=== PATIENT | female | born 1980 | race Caucasian/White ===

== ENCOUNTER 2018-04-06 11:43 | Emergency (ER) | payer MEDICAID, OTHER ==
[~2018-04-06] VITALS: Ht 157.5 cm; Wt 72.3 kg
[2018-04-06] MEDS ORDERED: IBUP-1984 PO (13:28)
[2018-04-06] MEDS ORDERED: CLIN150C2 PO (13:28)
[2018-04-06 13:36] VITALS: BP 135/65
== END 2018-04-06 13:37 | disposition home or self-care (01) ==
LOC: ER 11:44
DX: K08.89 Other specified disorders of teeth and supporting structures (principal); Z88.0 Allergy status to penicillin; Z91.040 Latex allergy status; Z79.899 Other long term (current) drug therapy
CPT/HCPCS: 99283

== ENCOUNTER 2018-04-16 08:22 | Emergency (ER) | payer MEDICAID, OTHER ==
[~2018-04-16] VITALS: Ht 157.5 cm; Wt 74.9 kg
[~2018-04-16 08:22] MED LIST: CLIN150C2 PO; IBUP-1984 PO
[2018-04-16 08:30] VITALS: BP 137/84
[2018-04-16] MEDS ORDERED: IBUP-1984 PO (08:54)
[2018-04-16] MEDS ORDERED: ketorolac trometh inj. 60 MG/2 ML VIAL IM ONE (08:55)
== END 2018-04-16 09:05 | disposition home or self-care (01) ==
LOC: ER 08:22
DX: K04.7 Periapical abscess without sinus (principal); Z88.0 Allergy status to penicillin; Z79.899 Other long term (current) drug therapy
CPT/HCPCS: 96372; 99283; J1885